=== PATIENT | female | born 1985 | race African-American/Black ===

== ENCOUNTER 2022-05-13 23:01 | Observation (INO) | payer BC ==
[2022-05-14 00:55] LABS: Absolute Lymphocytes (CBC) 1.8 K/uL (0.7-4.9); Hematocrit 35.2 % (36.0-45.0); Lymphocytes % 21.5 % (15.3-44.8); MCV 83.9 fL (80-100); MPV 9.2 fL (7.6-11.3)
[2022-05-14 01:38] LABS: ALT/SGPT 24 U/L (13-56); AST/SGOT 15 U/L (15-37); Albumin 3.6 g/dL (3.4-5.0); Alkaline Phosphatase 80 U/L (45-117); BUN Blood Urea Nitrogen 10 mg/dL (7-18); Bicarbonate 29 mmol/L (21-32); Bilirubin Direct < 0.1 mg/dL (0-0.2); Bilirubin Total 0.2 mg/dL (0.2-1.0); Glomerular Filtration Rate 117 ml/min (=/>90); Glucose Level 117 mg/dL (74-106); Magnesium 2.2 mg/dL (1.6-2.4); NT PRO-BNP 8 pg/mL (<125); Potassium 3.9 mmol/L (3.5-5.1); Protein, Total 7.5 g/dL (6.4-8.2); Sodium Level 137 mmol/L (136-145); Troponin High Sensitivity 4.3 pg/mL (<58.9)
[2022-05-14 03:39] LABS: Barbiturates NEGATIVE (NEGATIVE); Benzodiazepines NEGATIVE (NEGATIVE); Cocaine NEGATIVE (NEGATIVE); METHAMPHETAM NEGATIVE (NEGATIVE); Methadone NEGATIVE (NEGATIVE); Opiates NEGATIVE (NEGATIVE); Phencyclidine NEGATIVE (NEGATIVE); THC Cannibis NEGATIVE (NEGATIVE)
[2022-05-14 04:06] LABS: Urine Blood Trace-intact (Negative); Urine Glucose Negative (Negative); Urine Protein Negative (Negative); Urine pH 8.5 (5.0-7.0)
--- NOTE | 2022-05-14 04:07 | EDPHYS ---
Physician Documentation [facility] Name: Ioana Cr Age: 37 yrs Sex: Female : 1985 Arrival Date: 05/13/2022 Time: 23:07 Bed 5 Private MD: ED Physician Mehul Garces HPI: 05/14 07:27 This 37 yrs old Black Female presents to ER via Ambulatory with complaints of NUMBNESS, kdr SLOW SPEACH, FEEL HEAVY. 07:27 Patient was stating that approximately 20-30 she was eating dinner started feel chest kdr pressure and pain radiating down her left arm. Her spouse states that she appeared to have a seizure where she froze and her eyes flutter briefly. She then became unresponsive afterwards. She did not remember any of these incidents and subsequently had slowed speech. She also complained of numbness that was perioral and in both upper extremities and lower extremities.. Onset: The symptoms/episode began/occurred at 22:30. Severity of symptoms: At their worst the symptoms were mild moderate just prior to arrival, in the emergency department the symptoms are unchanged. The patient has not experienced similar symptoms in the past. The patient has not recently seen a physician. 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 - Social history:: Smoking status: Patient denies any tobacco usage or history of. ROS: 05/14 07:27 Constitutional: Negative for fever, chills, and weight loss, Eyes: Negative for injury, kdr pain, redness, and discharge, ENT: Negative for injury, pain, and discharge, Neck: Negative for injury, pain, and swelling, Cardiovascular: Negative for chest pain, palpitations, and edema, Respiratory: Negative for shortness of breath, cough, wheezing, and pleuritic chest pain, Abdomen/GI: Negative for abdominal pain, nausea, vomiting, diarrhea, and constipation, Back: Negative for injury and pain, : Negative for injury, bleeding, discharge, and swelling, MS/Extremity: Negative for injury and deformity, Skin: Negative for injury, rash, and discoloration, Psych: Negative for depression, anxiety, suicide ideation, homicidal ideation, and hallucinations, Allergy/Immunology: Negative for hives, rash, and allergies, Endocrine: Negative for neck swelling, polydipsia, polyuria, polyphagia, and marked weight changes, Hematologic/Lymphatic: Negative for swollen nodes, abnormal bleeding, and unusual bruising. Neuro: Positive for altered mental status, speech changes, weakness. Exam: 07:27 Constitutional: This is a well developed, well nourished patient who is awake, alert, kdr and in no acute distress. Head/Face: Normocephalic, atraumatic. Eyes: Pupils equal round and reactive to light, extra-ocular motions intact. Lids and lashes normal. Conjunctiva and sclera are non-icteric and not injected. Cornea within normal limits. Periorbital areas with no swelling, redness, or edema. Neck: Trachea midline, no thyromegaly or masses palpated, and no cervical lymphadenopathy. Supple, full range of motion without nuchal rigidity, or vertebral point tenderness. No Meningismus. Chest/axilla: Normal chest wall appearance and motion. Nontender with no deformity. No lesions are appreciated. Cardiovascular: Regular rate and rhythm with a normal S1 and S2. No gallops, murmurs, or rubs. Normal PMI, no JVD. No pulse deficits. Respiratory: Lungs have equal breath sounds bilaterally, clear to auscultation and percussion. No rales, rhonchi or wheezes noted. No increased work of breathing, no retractions or nasal flaring. Abdomen/GI: Soft, non-tender, with normal bowel sounds. No distension or tympany. No guarding or rebound. No evidence of tenderness throughout. Back: No spinal tenderness. No costovertebral tenderness. Full range of motion. Skin: Warm, dry with normal turgor. Normal color with no rashes, no lesions, and no evidence of cellulitis. MS/ Extremity: Pulses equal, no cyanosis. Neurovascular intact. Full, normal range of motion. Psych: Awake, alert, with orientation to person, place and time. Behavior, mood, and affect are within normal limits. 07:27 Neuro: Orientation: is normal, Mentation: able to follow commands, slow to respond, Memory: unable to test, Cranial nerves: no acute changes, Speech is dysarthric, slowed. Vital Signs: 05/13 23:22 BP 141 / 85; Pulse 86; Resp 16 S; Temp 98.1(O); Pulse Ox 100% on R/A; Weight 96.62 kg bb (R); Height 5 ft. 4 in. (162.56 cm) (R); Pain 0/10; 23:36 BP 140 / 82; Pulse 85; Resp 18 S; Pulse Ox 100% on R/A; ha1 05/14 00:30 BP 130 / 60; Pulse 82; Resp 16 S; Pulse Ox 100% on R/A; ha1 01:30 BP 120 / 57; Pulse 71; Resp 18 S; Pulse Ox 99% on R/A; ha1 02:20 BP 120 / 57; Pulse 70; Resp 18 S; Pulse Ox 99% on R/A; ha1 03:20 BP 104 / 73; Pulse 72; Resp 17 S; Pulse Ox 100% on R/A; ha1 04:20 BP 115 / 54; Pulse 65; Resp 16 S; Pulse Ox 100% on R/A; ha1 05/13 23:22 Body Mass Index 36.56 (96.62 kg, 162.56 cm) bb MDM: 04:06 Patient medically screened. kdr 07:27 Data reviewed: vital signs, nurses notes, lab test result(s), radiologic studies. kdr Counseling: I had a detailed discussion with the patient and/or guardian regarding: the historical points, exam findings, and any diagnostic results supporting the discharge/admit diagnosis, lab results, radiology results, the need for further work-up and treatment in the hospital. 05/13 23:53 Order name: Basic Metabolic Panel; Complete Time: 03:12 kdr 05/13 23:53 Order name: CBC with Diff; Complete Time: 03:12 kdr 05/13 23:53 Order name: LFT's; Complete Time: 03:12 kdr 05/13 23:53 Order name: Magnesium; Complete Time: 03:12 kdr 05/13 23:53 Order name: NT PRO-BNP; Complete Time: 03:12 kdr 05/13 23:53 Order name: Troponin HS; Complete Time: 03:12 kdr 05/13 23:53 Order name: Acetaminophen; Complete Time: 03:12 kdr 05/13 23:53 Order name: ETOH Level; Complete Time: 03:12 kdr 05/13 23:53 Order name: Salicylate; Complete Time: 03:12 kdr 05/13 23:53 Order name: Urine Drug Screen; Complete Time: 04:04 kdr 05/14 04:06 Order name: Urine Dipstick-Ancillary EDNE 05/14 04:10 Order name: Urine --Ancillary (enter results) wm 05/14 04:35 Order name: SARS RAPID ha1 05/14 05:31 Order name: SARS-COV-2 Antigen Rapid EDNE 05/13 23:53 Order name: XRAY Chest (1 view) kdr 05/13 23:53 Order name: EKG; Complete Time: 23:54 kdr 05/13 23:53 Order name: Cardiac monitoring; Complete Time: 00:24 kdr 05/13 23:53 Order name: EKG - Nurse/Tech; Complete Time: 00:24 kdr 05/13 23:53 Order name: IV Saline Lock; Complete Time: 00:25 kdr 05/13 23:53 Order name: Labs collected and sent; Complete Time: 04:36 kdr 05/13 23:53 Order name: O2 Per Protocol; Complete Time: 00:25 kdr 05/13 23:53 Order name: O2 Sat Monitoring; Complete Time: 00:25 kdr 05/13 23:53 Order name: Urine Dipstick-Ancillary (obtain specimen); Complete Time: 04:35 kdr 05/13 23:53 Order name: CT Head Brain wo Cont kdr 05/14 00:29 Order name: CT Head Angio kdr 05/14 01:14 Order name: Neck Angio EDNE 05/14 08:38 Order name: Lipid Profile EDNE 05/14 08:38 Order name: Thyroid Stimulating Hormone EDNE Administered Medications: 04:58 Drug: Aspirin 325 mg Route: PO; ha1 06:46 Follow up: Response: No adverse reaction ha1 Disposition Summary: 05/14/22 04:06 Hospitalization Ordered Hospitalization Status: Observation kdr Provider: Nelly Fernandez kdr Condition: Fair kdr Problem: new kdr Symptoms: have improved kdr Bed/Room Type: Standard kdr Location: [facility] ER HOLD(05/14/22 04:43) eb1 Room Assignment: ERHOLD-(05/14/22 04:43) eb1 Diagnosis - Weakness kdr - Dysphasia kdr - Paresthesia of skin kdr Discharge Instructions: - Discharge Summary Sheet em1 Forms: - Medication Reconciliation Form kdr - SBAR form kdr - Work release form em1 Signatures: Dispatcher [employer] Mehul Bunch MD MD kdr Ballard, Brenda, RN RN Johanna Clement RN RN eb1 Salma Farah RN RN Angela Canales PA-C PA-C sb4 Corrections: (The following items were deleted from the chart) 04:43 04:06 Telemetry/MedSurg (observation) kdr eb1 04:43 04:06 kdr eb1
--- NOTE | 2022-05-14 04:07 | ER ---
Nurse's Notes [facility] Name: Ioana Cr Age: 37 yrs Sex: Female : 1985 Arrival Date: 05/13/2022 Time: 23:07 Bed 5 Private MD: Diagnosis: Weakness;Dysphasia;Paresthesia of skin Presentation: 05/13 23:22 Chief complaint: Spouse and/or significant other states: approx 2230 pt was eating bb dinner started feeling chest pressure radiating down left arm spouse states pt appeared to have several seizures where she froze, eyes fluttered and she was unresponsive afterwards she did not remember and had slow speech numbness to extremities and chin. Coronavirus screen: At this time, the client does not indicate any symptoms associated with coronavirus-19. Ebola Screen: No symptoms or risks identified at this time. Initial Sepsis Screen: Does the patient meet any 2 criteria? No. Patient's initial sepsis screen is negative. Does the patient have a suspected source of infection? No. Patient's initial sepsis screen is negative. Risk Assessment: Do you want to hurt yourself or someone else? Patient reports no desire to harm self or others. Onset of symptoms was May 13, 2022 at 22:30. 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 - Social history:: Smoking status: Patient denies any tobacco usage or history of. Screenin/15 00:22 Abuse screen: Denies threats or abuse. Denies injuries from another. Nutritional ha1 screening: No deficits noted. Tuberculosis screening: No symptoms or risk factors identified. 06:44 [facility] ED Fall Risk Assessment (Adult) History of falling in the last 3 months, ha1 including since admission No falls in past 3 months (0 pts) Confusion or Disorientation No (0 pts) Intoxicated or Sedated No (0 pts) Impaired Gait No (0 pts) Mobility Assist Device Used No (0 pt) Altered Elimination No (0 pt) Score/Fall Risk Level 0 - 2 = Low Risk Oriented to surroundings, Maintained a safe environment, Educated pt \T\ family on fall prevention, incl call for assistance when getting out of bed, Assessed \T\ reinforced patient's understanding of fall precautions, Hourly rounding (assess needs \T\ fall precautionary measures) done. 06:45 Fall Risk No fall in past 12 months (0 pts). IV access (20 points). Gait- Normal/Bed ha1 Rest/Wheelchair (0 pts) Mental Status- Oriented to own ability (0 pts). Total Colmenares Fall Scale indicates No Risk (0-24 pts). Assessment: 00:19 General: Appears comfortable, Behavior is calm, cooperative. Pain: Denies pain. Neuro: ha1 Level of Consciousness is awake, alert, obeys commands, Oriented to person, place, time, situation. Cardiovascular: Heart tones S1 S2 present Capillary refill < 3 seconds Patient's skin is warm and dry. Respiratory: Airway is patent Trachea deviated to right Respiratory effort is even, unlabored, Respiratory pattern is regular, symmetrical. GI: Abdomen is non-distended, obese, Bowel sounds present X 4 quads. : No signs and/or symptoms were reported regarding the genitourinary system. EENT: No deficits noted. No signs and/or symptoms were reported regarding the EENT system. Derm: Skin is normal. Musculoskeletal: Circulation, motion, and sensation intact. Range of motion: intact in all extremities, Reports numbness in right leg and left leg. Musculoskeletal: Reports numbness in right arm, right leg and left leg. 01:20 Reassessment: Patient and/or family updated on plan of care and expected duration. Pain ha1 level reassessed. Patient is alert, oriented x 3, equal unlabored respirations, skin warm/dry/pink. Patient denies pain at this time. 02:20 Reassessment: Patient and/or family updated on plan of care and expected duration. Pain ha1 level reassessed. Patient is alert, oriented x 3, equal unlabored respirations, skin warm/dry/pink. Patient denies pain at this time. 03:20 Reassessment: Patient and/or family updated on plan of care and expected duration. Pain ha1 level reassessed. Patient is alert, oriented x 3, equal unlabored respirations, skin warm/dry/pink. Patient denies pain at this time. 04:20 Reassessment: Patient and/or family updated on plan of care and expected duration. Pain ha1 level reassessed. Patient is alert, oriented x 3, equal unlabored respirations, skin warm/dry/pink. Patient denies pain at this time. 07:00 Reassessment: RECD REPORT FROM OLGA CALDERÓN. 37YO BF P/W CIRCUMORAL NUMBNESS AND SLOW bp SPEECH AFTER CONSPICUOUS CONSUMPTION OF ALCOHOL AT BIRTHDAY DEMOCRAT. ADMIT IN PROCESS. Vital Signs: 05/13 23:22 BP 141 / 85; Pulse 86; Resp 16 S; Temp 98.1(O); Pulse Ox 100% on R/A; Weight 96.62 kg bb (R); Height 5 ft. 4 in. (162.56 cm) (R); Pain 0/10; 23:36 BP 140 / 82; Pulse 85; Resp 18 S; Pulse Ox 100% on R/A; ha1 05/14 00:30 BP 130 / 60; Pulse 82; Resp 16 S; Pulse Ox 100% on R/A; ha1 01:30 BP 120 / 57; Pulse 71; Resp 18 S; Pulse Ox 99% on R/A; ha1 02:20 BP 120 / 57; Pulse 70; Resp 18 S; Pulse Ox 99% on R/A; ha1 03:20 BP 104 / 73; Pulse 72; Resp 17 S; Pulse Ox 100% on R/A; ha1 04:20 BP 115 / 54; Pulse 65; Resp 16 S; Pulse Ox 100% on R/A; ha1 05/13 23:22 Body Mass Index 36.56 (96.62 kg, 162.56 cm) ED Course: 05/13 23:07 Patient arrived in ED. es 23:25 Triage completed. bb 23:25 Arm band placed on Patient placed in an exam room, on a stretcher, on pulse oximetry. bb Family accompanied patient. 23:45 Patient has correct armband on for positive identification. Bed in low position. Call ha1 light in reach. Side rails up X 1. Adult w/ patient. 23:51 Mehul Garces MD is Attending Physician. kdr 23:55 Inserted saline lock: 20 gauge in left antecubital area, using aseptic technique. ha1 05/14 00:46 CT Head Brain wo Cont In Process Unspecified. EDMS 01:25 XRAY Chest (1 view) In Process Unspecified. EDMS 02:25 CT Head Angio In Process Unspecified. EDMS 02:25 Neck Angio In Process Unspecified. EDMS 02:40 Olga Farah, RN is Primary Nurse. ha1 04:04 Nelly Fernandez MD is Hospitalizing Provider. kdr 06:41 No provider procedures requiring assistance completed. Patient admitted, IV remains in ha1 place. 06:46 SARS RAPID Sent. ha1 07:13 Primary Nurse role handed off by Olga Farah, RN bp 07:13 Vincent Mackey, RN is Primary Nurse. bp Administered Medications: 04:58 Drug: Aspirin 325 mg Route: PO; ha1 06:46 Follow up: Response: No adverse reaction ha1 Medication: 05:13 VIS not applicable for this client. ha1 Outcome: 04:06 Decision to Hospitalize by Provider. kdr 06:42 Admitted to ER Hold. Please see [facility] for further documentation. ha1 06:42 Condition: stable 06:42 Instructed on the need for admit. 09:59 Patient left the ED. bp Signatures: Dispatcher [employer] Mehul Bunch MD MD kdr Salyer, Edna es Ballard, Brenda, RN RN bb Vincent Mackey, STEPHANE RN bp Olga Farah, STEPHANE RN ha1
[2022-05-14 04:13] VITALS: TEMP 98.1
--- NOTE | 2022-05-14 04:13 | P.HP ---
Certification for Inpatient Patient admitted to: Observation With expected LOS: <2 Midnights Patient will require the following post-hospital care: None Practitioner: I am a practitioner with admitting privileges, knowledge of patient current condition, hospital course, and medical plan of care. Services: Services provided to patient in accordance with Admission requirements found in Title 42 Section 412.3 of the Code of Federal Regulations Patient History Date of Service: 05/14/22 Reason for admission: CVA Rule Out History of Present Illness: Patient is a 37 year old female who presented to the ED with concerns for stroke. She reports that she was eating dinner when all of a sudden she started experiencing chest tightness that radiated to her left arm, blurred vision, slowed speech, and heaviness in her legs. Spouse reports that her eyes were fluttering and she was less responsive afterwards. Patient is alert and oriented x 4 in the ED. She reports that she still feels like her speech is slowed and is experiencing heaviness in her legs. Her labs are unremarkable except for anemia. All imaging is negative. She was given 324 mg aspirin in the ED. Patient denies any medical problems or daily medication use. ED provider wishes to admit patient for observation, CVA rule out. Home medications list reviewed: Yes (NA) - Past Medical/Surgical History Diabetic: No Past Medical History: Patient denies medical history -: -: Cholecystectomy Psychosocial/ Personal History: Patient lives at home with her family. 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 - Family History Father -: Diabetes Mother -: Diabetes - Social History Smoking Status: Never smoker Alcohol use: Yes CD- Drugs: No Caffeine use: Yes Place of Residence: Home Review of Systems Cardiovascular: Chest Pain Neurological: Weakness, Numbness, Change in Speech Physical Examination - Vital Signs Temperature: 98.1 F Blood Pressure: 120/57 Pulse: 70 Respirations: 18 Pulse Ox (%): 99 (room air) - Physical Exam General: Alert, In no apparent distress HEENT: Atraumatic, PERRLA, EOMI, Sclerae nonicteric Neck: Supple, 2+ carotid pulse no bruit, No LAD, Without JVD or thyroid abnormality Respiratory: Clear to auscultation bilaterally, Normal air movement Cardiovascular: Regular rate/rhythm, Normal S1 S2 Gastrointestinal: Normal bowel sounds, No tenderness Musculoskeletal: No tenderness Integumentary: No rashes Neurological: Normal strength at 5/5 x4 extr, Normal tone, Normal affect, Abnormal speech - Studies Laboratory Data (last 24 hrs) 05/14/22 00:35: WBC 8.20, Hgb 11.7 L, Hct 35.2 L, Plt Count 261 05/14/22 00:35: Sodium 137, Potassium 3.9, BUN 10, Creatinine 0.62, Glucose 117 H, Magnesium 2.2, Total Bilirubin 0.2, AST 15, ALT 24, Alkaline Phosphatase 80 Assessment and Plan - Problems (Diagnosis) (1) TIA (transient ischemic attack) Current Visit: Yes Status: Acute - Plan Patient is admitted for CVA rule out. Head CT, head/neck CT angio negative. Labs unremarkable. MRI stroke protocol and echo ordered for the morning as well as lipid panel and TSH. Neurology consulted. Symptoms could be secondary to anxiety/hyperventilation syndrome. Aspirin, atorvastatin, folic acid daily. Discharge Plan: Home Plan to discharge in: 24 Hours - Advance Directives Does patient have a Living Will: No Does patient have a Durable POA for Healthcare: No - Code Status/Comfort Care Code Status Assessed: Yes Code Status: Full Code Physician Review: Patient Assessed, Agree with Above Assessment and Plan Critical Care: No Time Spent Managing Pts Care (In Minutes): 50
[2022-05-14] MEDS ORDERED: ASPIRIN 325 MG TAB ONE (04:46)
[2022-05-14] MEDS ORDERED: NA CHLORIDE 0.9% 1,000 ML IV SCH (05:27)
[2022-05-14] MEDS ORDERED: ONDANSETRON 4 MG/2 ML VIAL IV PRN (05:27)
[2022-05-14] MEDS ORDERED: ACETAMINOPHEN 500 MG TAB PO PRN (05:27)
[2022-05-14 05:31] LABS: SARS-CoV-2 Antigen Rapid Res Negative (Negative)
[2022-05-14] MEDS ORDERED: NA CHLORIDE 0.9% 1,000 ML ONE (05:36)
[2022-05-14 07:01] VITALS: BMI 33.2
[2022-05-14] MEDS ORDERED: INFLUENZA VACCINE (for 6+ mo) 0.5 ML DOSE IMVAC ONE (08:00)
--- NOTE | 2022-05-14 08:02 | EKG ---
Test Date: 2022-05-13 Test Time: 23:43:28 Foundation Stage Teacher: KRISSY MEASUREMENT RESULTS: Intervals: Rate: 77 NC: 156 QRSD: 80 QT: 394 QTc: 445 [place]: P: 46 NC: 156 QRS: 14 T: 19 INTERPRETIVE STATEMENTS: Normal sinus rhythm Cannot rule out Anterior infarct, age undetermined Abnormal ECG No previous ECG available for comparison Electronically Signed On 05-14-22 08:01:35 HEALTHCARE RECRUITER by Gerardo Nava
[2022-05-14 08:06] VITALS: BP 121/71
[2022-05-14 08:38] LABS: Thyroid Stimulating Hormone 3.13 uIU/mL (0.358-3.740)
[2022-05-14] MEDS ORDERED: ASPIRIN EC 81 MG TAB PO SCH (09:00)
[2022-05-14] MEDS ORDERED: ENOXAPARIN 40 MG/0.4 ML SQ SCH (09:00)
[2022-05-14] MEDS ORDERED: FOLIC ACID 1 MG TABLET PO SCH (09:00)
[2022-05-14 10:35] VITALS: O2SAT 100
--- NOTE | 2022-05-14 11:26 | RAD REPORT ---
EXAM DESCRIPTION: RAD - Chest Single View - 05/14/2022 1:23 am CLINICAL HISTORY: The patient is 37 years old and is Female; wekness TECHNIQUE: Frontal view of the chest. COMPARISON: No relevant prior studies available. FINDINGS: LUNGS: Unremarkable. No consolidation. PLEURAL SPACE: Unremarkable. No pneumothorax. HEART: Unremarkable. No cardiomegaly. MEDIASTINUM: Unremarkable. BONES/JOINTS: Unremarkable. UPPER ABDOMEN: Unremarkable as visualized. IMPRESSION: No acute cardiopulmonary process. Electronically signed by: Indiana Zapien MD 05/14/2022 1:34 AM BACKUP ADMINISTRATIVE COORDINATOR Due to temporary technical issues with the PACS/Fluency reporting system, reports are being signed by the in house radiologists without review as a courtesy to insure prompt reporting. The interpreting radiologist is fully responsible for the content of the report.
--- NOTE | 2022-05-14 12:07 | RAD REPORT ---
EXAM DESCRIPTION: CT - Head Brain Wo Cont - 05/14/2022 6:33 am CLINICAL HISTORY: The patient is 37 years old and is Female; Mental status change, unknown cause TECHNIQUE: Axial computed tomography images of the head/brain without intravenous contrast. Sagitt al and coronal reformatted images were created and reviewed. This CT exam was performed using one o r more of the following dose reduction techniques: automated exposure control, adjustment of the mA and/or kV according to patient size, and/or use of iterative reconstruction technique. COMPARISON: No relevant prior studies available. FINDINGS: BRAIN: No extra-axial fluid collection. No intracranial hemorrhage. No transtentorial herniation. No focal faria-white matter differentiation abnormality. MIDLINE SHIFT: No midline shift. VENTRICLES: Unremarkable. No ventriculomegaly. BONES/JOINTS: No fracture of the calvarium or visualized facial bones. SOFT TISSUES: Unremarkable. SINUSES: Unremarkable as visualized. No acute sinusitis. MASTOID AIR CELLS: Unremarkable as visualized. No mastoid effusion. IMPRESSION: No acute intracranial abnormality. Electronically signed by: Cassius Randolph MD 05/14/2022 12:51 AM COMPRESS ENGINEER Due to temporary technical issues with the PACS/Fluency reporting system, reports are being signed by the in house radiologists without review as a courtesy to insure prompt reporting. The interpreting radiologist is fully responsible for the content of the report.
--- NOTE | 2022-05-14 12:09 | RAD REPORT ---
EXAM DESCRIPTION: CT - Neck Angio - 05/14/2022 6:36 am CLINICAL HISTORY: 37 years, Female, Head trauma, abnormal mental status COMPARISON: None. TECHNIQUE: Axial CTA images of the head and neck obtained following the uncomplicated intravenous ad ministration of iodinated contrast. 3-D/MIP reformatted images available. This exam was performed acc ording to our departmental dose-optimization program, which includes automated exposure control, adju stment of the mA and/or kV according to patient size and/or use of iterative reconstruction technique . FINDINGS: CTA head: In the anterior circulation, the intracranial internal carotid arteries have normal course. The inter nal carotid arteries bifurcate into patent A1 and M1 segments of the anterior and middle cerebral art eries respectively. No evidence of flow-limiting stenosis, aneurysm, occlusion, or dissection in the anterior circulation. The anterior communicating artery is patent. In the posterior circulation, the intracranial vertebral arteries combine to form a patent basilar ar sally. The basilar artery bifurcates into patent P1 segments of the posterior cerebral artery. No evid ence of stenosis, aneurysm, occlusion, or dissection in the posterior circulation. No definite acute intracranial abnormality identified. No acute abnormality of the osseous calvarium. Paranasal sinuses and mastoid air cells are well aerated. CTA NECK: The aortic arch has normal anatomic configuration. The origin of the great vessels are patent. The right common carotid artery is patent and bifurcates into patent internal and external carotid ar teries. 0% stenosis by NASCET criteria. No evidence of occlusion or dissection. The left common carotid artery is patent and bifurcates into patent internal and external carotid art eries. 0% stenosis by NASCET criteria. No evidence of occlusion or dissection. The cervical vertebral arteries are patent throughout their course. No evidence of occlusion, stenosi s, or dissection. No definite acute abnormalities in the neck soft tissues. No apical pneumothorax. No acute osseous ab normalities. IMPRESSION: 1. No evidence of stenosis, occlusion, or aneurysm in the intracranial arterial circul ation. 2. No evidence of stenosis/occlusion involving the cervical carotid or vertebral arteries. Electronically signed by: Harry Bustamante 05/14/2022 2:47 AM ENVIRONMENTAL MONITORING TECHNICIAN Due to temporary technical issues with the PACS/Fluency reporting system, reports are being signed by the in house radiologists without review as a courtesy to insure prompt reporting. The interpreting radiologist is fully responsible for the content of the report.
--- NOTE | 2022-05-14 12:12 | RAD REPORT ---
EXAM DESCRIPTION: CT - Head angio - 05/14/2022 6:35 am CLINICAL HISTORY: 37 years, Female, Head trauma, abnormal mental status COMPARISON: None. TECHNIQUE: Axial CTA images of the head and neck obtained following the uncomplicated intravenous ad ministration of iodinated contrast. 3-D/MIP reformatted images available. This exam was performed acc ording to our departmental dose-optimization program, which includes automated exposure control, adju stment of the mA and/or kV according to patient size and/or use of iterative reconstruction technique . FINDINGS: CTA head: In the anterior circulation, the intracranial internal carotid arteries have normal course. The inter nal carotid arteries bifurcate into patent A1 and M1 segments of the anterior and middle cerebral art eries respectively. No evidence of flow-limiting stenosis, aneurysm, occlusion, or dissection in the anterior circulation. The anterior communicating artery is patent. In the posterior circulation, the intracranial vertebral arteries combine to form a patent basilar ar sally. The basilar artery bifurcates into patent P1 segments of the posterior cerebral artery. No evid ence of stenosis, aneurysm, occlusion, or dissection in the posterior circulation. No definite acute intracranial abnormality identified. No acute abnormality of the osseous calvarium. Paranasal sinuses and mastoid air cells are well aerated. CTA NECK: The aortic arch has normal anatomic configuration. The origin of the great vessels are patent. The right common carotid artery is patent and bifurcates into patent internal and external carotid ar teries. 0% stenosis by NASCET criteria. No evidence of occlusion or dissection. The left common carotid artery is patent and bifurcates into patent internal and external carotid art eries. 0% stenosis by NASCET criteria. No evidence of occlusion or dissection. The cervical vertebral arteries are patent throughout their course. No evidence of occlusion, stenosi s, or dissection. No definite acute abnormalities in the neck soft tissues. No apical pneumothorax. No acute osseous ab normalities. IMPRESSION: 1. No evidence of stenosis, occlusion, or aneurysm in the intracranial arterial circul ation. 2. No evidence of stenosis/occlusion involving the cervical carotid or vertebral arteries. Electronically signed by: Harry Bustamante 05/14/2022 2:47 AM ARMAMENT INSTALLER Due to temporary technical issues with the PACS/Fluency reporting system, reports are being signed by the in house radiologists without review as a courtesy to insure prompt reporting. The interpreting radiologist is fully responsible for the content of the report.
[2022-05-14] MEDS ORDERED: ATORVASTATIN 40 MG TAB PO SCH (21:00)
--- NOTE | 2022-05-15 06:54 | ECHO ---
HEIGHT: 5 ft 7 in WEIGHT: 212 lb 0 oz DATE OF STUDY: 05/14/[address]: Angela Farmer 2-DIMENSIONAL: YES M.MODE: YES DOPPLER: YES COLOR FLOW: YES TDS: PORTABLE: YES DEFINITY: BUBBLE STUDY: DIAGNOSIS: DIZZINESS CARDIAC HISTORY: CATHERIZATION: SURGERY: PROSTHETIC VALVE: PACEMAKER: MEASUREMENTS (cm) DIASTOLIC (NORMALS) SYSTOLIC (NORMALS) IVSd 1.1 (0.6-1.2) LA Diam 3.1 (1.9-4.0) LVEF 60% LVIDd 3.3 (3.5-5.7) LVIDs 2.5 (2.0-3.5) %FS 26% LVPWd 1.1 (0.6-1.2) Ao Diam 2.6 (2.0-3.7) 2 DIMENSIONAL ASSESSMENT: RIGHT ATRIUM: NORMAL LEFT ATRIUM: NORMAL RIGHT VENTRICLE: NORMAL LEFT VENTRICLE: NORMAL TRICUSPID VALVE: TRACE TRICUSPID REGURGITATION MITRAL VALVE: TRACE MITRAL REGURGITATION PULMONIC VALVE: NORMAL AORTIC VALVE: NORMAL PERICARDIAL EFFUSION: NONE AORTIC ROOT: NORMAL LEFT VENTRICULAR WALL MOTION: NORMAL DOPPLER/COLOR FLOW: TRACE MITRAL REGURGITATION, TRICUSPID REGURGITATION COMMENTS: 1. NORMAL LEFT VENTRICUALR EJECTION FRACTION 60-65% WITH NORMAL WALL MOTION 2. NORMAL DIASTOLIC FUNCTION 3. TRACE MITRAL REGURGITATION 4. TRACE TRICUSPID REGURGITATION TECHNOLOGIST: BONNIE MCCANN
--- NOTE | 2022-05-26 22:25 | P.DS ---
Discharge Date: 05/14/22 Disposition: ROUTINE DISCHARGE Discharge Condition: GOOD Reason for Admission: CVA Rule Out Brief History of Present Illness: Patient is a 37 year old female who presented to the ED with concerns for stroke. She reports that she was eating dinner when all of a sudden she started experiencing chest tightness that radiated to her left arm, blurred vision, slowed speech, and heaviness in her legs. Spouse reports that her eyes were flu ttering and she was less responsive afterwards. Patient is alert and oriented x 4 in the ED. She reports that she still feels like her speech is slowed and is experiencing heaviness in her legs. Her labs are unremarkable except for anemia. All imaging is negative. She was given 324 mg aspirin in the ED. Patient denies any medical problems or daily medication use. ED provider wishes to admit patien t for observation, CVA rule out. Hospital Course: Patient is clinically doing much better. Symptoms have resolved. I spoke to the patient and she was scheduled to get an MRI by nursing staff at discharge patient prior to his being done. Patient feels well. I called patient at home in her clinical symptoms have pretty much resolved. Patient will follow-up with PCP for further evaluation as needed. Continue anti-platelet therapy and antibiotic therapy with outpatient Neurology follow-up as well. Vital Signs/Physical Exam: Temp Pulse Resp BP Pulse Ox 98.1 F 74 15 121/71 98 05/14/22 04:33 05/14/22 08:00 05/14/22 08:00 05/14/22 08:00 05/14/22 08:00 General: Alert, In no apparent distress, Oriented x3 Laboratory Data at Discharge: WBC 8.20 K/uL (4.3-10.9) 05/14/22 00:35 Hgb 11.7 g/dL (12.0-15.0) L 05/14/22 00:35 Hct 35.2 % (36.0-45.0) L 05/14/22 00:35 Plt Count 261 K/uL (152-406) 05/14/22 00:35 Sodium 137 mmol/L (136-145) 05/14/22 00:35 Potassium 3.9 mmol/L (3.5-5.1) 05/14/22 00:35 BUN 10 mg/dL (7-18) 05/14/22 00:35 Creatinine 0.62 mg/dL (0.55-1.02) 05/14/22 00:35 Glucose 117 mg/dL (74-106) H 05/14/22 00:35 Magnesium 2.2 mg/dL (1.6-2.4) 05/14/22 00:35 Total Bilirubin 0.2 mg/dL (0.2-1.0) 05/14/22 00:35 AST 15 U/L (15-37) 05/14/22 00:35 ALT 24 U/L (13-56) 05/14/22 00:35 Alkaline Phosphatase 80 U/L (45-117) 05/14/22 00:35 Triglycerides 80 mg/dL (<150) 05/14/22 08:00 Cholesterol 167 mg/dL (<200) 05/14/22 08:00 HDL Cholesterol 42 mg/dL (40-60) 05/14/22 08:00 Cholesterol/HDL Ratio 3.98 05/14/22 08:00 Home Medications: Aspirin [Aspirin EC 81 MG] 81 mg PO DAILY #30 tab 05/14/22 Cefdinir [Cefdinir*] 300 mg PO BID #14 cap 05/14/22 New Medications: Aspirin [Aspirin EC 81 MG] 81 mg PO DAILY #30 tab Cefdinir [Cefdinir*] 300 mg PO BID #14 cap Physician Discharge Instructions: -DC IV and DC home -Follow-up with PCP in 1 to 2 weeks -Follow-up with Neurology in 1 to 2 weeks -Please call Dr. Fernandez at [phone] if any questions regarding hospital stay -Please call nursing station at [phone] if any nursing or medication questions -Return to the emergency room if symptoms worsen Diet: AHA Activity: Fall precautions Followup: Lainey MCKAY,Shay Shipley DO [Primary Care Provider] - Time spent managing pt's care (in minutes): 35
== END 2022-05-14 09:59 | disposition home or self-care (01) ==
LOC: ER 23:01 → ERHOLD 05-14 04:06
PROVIDERS: ADMIT Hospitalist; ATTEND Hospitalist
DX: G45.9 Transient cerebral ischemic attack, unspecified (principal); Z20.822 Contact with and (suspected) exposure to COVID-19; Z88.0 Allergy status to penicillin
CPT/HCPCS: 93005; 93306; 85025; 80048; 36415; 80320; 83735; 80329 ×2; 81025; 80061; 80076; 84443; 81003; 84484; 83880; 80307; 70450; 70496; 70498; 71045; 97161; 99285; 87811; Q9967; J7030; G0378 ×2